=== PATIENT | female | born 1965 ===

== ENCOUNTER 2023-12-11 11:28 | Emergency (ER) | payer OTHER, SELFPAY ==
[2023-12-11] VITALS (16 sets, daily range): BP systolic 170–200; BP diastolic 96–120; PULSE 82–123; RESP 9–20; O2SAT 98–100
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
[2023-12-11] MEDS: Ondansetron 4 MG/2 ML VIAL IVP ×2 (11:46→13:27)
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
[2023-12-11 11:51] LABS: Abs Immature Grans 0.18 10^3/uL (0.0-0.06); Absolute Basophil Count 0.06 10^3/uL (0.0-0.2); Absolute Eosinophil Count 0.25 10^3/uL (0.0-0.7); Absolute Lymphocyte Count 4.77 10^3/uL (1.2-3.4); Absolute Monocyte Count 1.01 10^3/uL (0.1-0.8); Absolute Neutrophil Count 5.18 10^3/uL (1.2-6.7); Basophils % 0.5 %; Eosinophils % 2.2 %; HCT 41.1 % (36.0-46.0); HGB 13.7 g/dL (11.2-15.7); Immature Grans % 1.6 %; Lymphocytes % 41.7 %; MCH 31.9 pg (27.0-33.0); MCHC 33.3 % (32.0-36.0); MCV 96 fL (80-95); MPV 10.4 fL (8.0-11.0); Monocytes % 8.8 %; Neutrophils % 45.2 %; Platelet Count 276 10^3/uL (130-400); RBC 4.29 10^6/uL (3.93-5.22); RDW 12.7 % (11.7-14.6); RDW-SD 45.1 fL; WBC 11.45 10^3/uL (4.4-10.8)
[2023-12-11] MEDS: Omnipaque 350 MG/ML 100 ML BTL IJ (11:55)
[2023-12-11] MEDS: Normal Saline - Diluent 50 ML VIAL IJ (11:55)
[2023-12-11 12:12] LABS: PTT Activated 25.2 sec (23.6-32.8); Prothrombin Time 9.9 sec (9.1-11.1)
[2023-12-11 12:14] LABS: ALT 108 U/L (14-59); AST 66 U/L (15-37); Albumin 3.8 g/dL (3.4-5.0); Alkaline Phosphatase 113 U/L (46-116); Anion Gap 12.7 mmol/L (3-11); BUN 27 mg/dL (7-18); Bilirubin, Total 0.79 mg/dL (0.2-1.0); CO2 26.3 mmol/L (21.0-32.0); CREATININE 0.8 mg/dL (0.55-1.02); Calcium 9.4 mg/dL (8.5-10.1); Chloride 102 mmol/L (98-107); Glucose 117 mg/dL (74-106); Potassium 3.7 mmol/L (3.5-5.1); Sodium 141 mmol/L (136-145); Total Protein 7.8 g/dL (6.4-8.2); Troponin I 4 ng/L (<or=51)
[2023-12-11 12:16] LABS: ETHANOL BLOOD < 3.0 mg/dL (<10)
[2023-12-11 13:11] LABS: Bilirubin Negative (Negative); Blood Negative (Negative); Clarity Clear (Clear); Glucose Negative (Negative); Ketones Negative (Negative); Leukocyte Esterase Negative (Negative); Nitrite Negative (Negative); Urobilinogen 0.2 mg/dL (Up to 0.2)
[2023-12-11] MEDS: Meclizine 25 MG TAB PO (13:26)
[2023-12-11] MEDS: Lidocaine 5% Patch 2 PATCH TP (13:27)
== END 2023-12-11 13:42 | disposition home or self-care (01) ==
PROVIDERS: Emergency Provider Student in an Organized Health Care Education/Training Program
DX: S06.0XAA Concussion with loss of consciousness status unknown, initial encounter (principal); S22.31XA Fracture of one rib, right side, initial encounter for closed fracture; S00.03XA Contusion of scalp, initial encounter; V03.90XA Pedestrian on foot injured in collision with car, pick-up truck or van, unspecified whether traffic or nontraffic accident, initial encounter; Y93.01 Activity, walking, marching and hiking; Y92.488 Other paved roadways as the place of occurrence of the external cause; I10 Essential (primary) hypertension
CPT/HCPCS: 74177; 80053; 93005; 96374; 96376; 99285; 70450; 70486; 71260; 72125; 80320; 81003; 84484; 85025; 85610; 85730; 93010; 99284; J2405; J3490

== ENCOUNTER 2024-03-08 04:48 | Outpatient (CLI) | payer MEDICARE, SELFPAY ==
[2024-03-08 09:44] LABS: Hemoglobin A1C 5.5 % (<5.7)
[2024-03-08 09:49] LABS: Platelet Count 277 10^3/uL (130-400)
== END 2024-03-08 04:49 | disposition home or self-care (01) ==
PROVIDERS: PCP Nurse Practitioner Family; Referring Provider Nurse Practitioner Family; Visit Provider Nurse Practitioner Family
DX: R73.09 Other abnormal glucose; R74.8 Abnormal levels of other serum enzymes
CPT/HCPCS: 36415; 80061; 80076; 83036; 85049